=== PATIENT | female | born 1950 | race Caucasian/White ===

== ENCOUNTER 2017-02-21 17:20 | Emergency (ER) | payer OTHER ==
[2017-02-21] MEDS ORDERED: Lidocaine 1% 5ml(IM or SUTURE)(PAIN CLINIC) ONE (17:40)
[2017-02-21] MEDS ORDERED: DIPH,PERTUSS(ACELL),TET VAC/PF 0.5 ML DISP.SYRIN IM ONE (17:41)
[2017-02-21] MEDS ORDERED: Lidocaine 1% 5ml(IM or SUTURE)(PAIN CLINIC) IJ ONE (17:41)
--- NOTE | 2017-02-21 17:41 | ED Physician Documentation ---
General Adult - HISTORIAN Historian: patient - HPI Stated Complaint: laceration L thumb Chief Complaint: General Adult Onset: minutes Timing: still present Severity: moderate Further Comments: yes (Pt is a 67 yo female who tripped on her porch and lacerated the tip of her L thumb in the fall. Tetanus status is unknown.) - ROS CONST: no problems EYES/ENT: none CVS/RESP: none GI/: none MS/SKIN/LYMPH: other (L thumb laceration) - PAST HX Past History: hypertension, other (DM, HLD) Allergies/Adverse Reactions: Allergies Allergy/AdvReac Type Severity Reaction Status Date / Time No Known Allergies Allergy Verified 02/21/17 17:57 Home Medications: Ambulatory Orders Medication Instructions Recorded Benazepril HCl [Lotensin] 20 mg PO BID 02/21/17 Glimepiride [Amaryl] 2 mg PO BID 02/21/17 Metformin HCl [Metformin HCl ER] 1,000 mg PO BID 02/21/17 Pioglitazone HCl [Actos] 30 mg PO DAILY 02/21/17 Rivaroxaban [Xarelto] 20 mg PO DAILY 02/21/17 Simvastatin [Zocor] 20 mg PO HS 02/21/17 - SOCIAL HX Smoking History: non-smoker - FAMILY HX Family History: No - REVIEWED ASSESSMENTS Nursing Assessment Reviewed: Yes Vitals Reviewed: Yes Procedures Wound Location: upper extremity (L thumb tip) Wound Length: 1.5 cm Wound's Depth, Shape: flap Wound Explored: clean Irrigated w/ Saline (ccs): 20 Betadine Prep?: Yes Anesthesia: 1% Lidocaine (digital block) Volume of Anesthetic: 6 cc Wound Debrided: minimal Wound Repaired With: sutures Suture Size/Type: 4:0, nylon Number of Sutures: 2 Progress - Progress Progress: Topical abx Tdap 0.5 ml IM General Adult Physical Exam - PHYSICAL EXAM GENERAL APPEARANCE: mild distress NECK: normal inspection, supple RESPIRATORY: no resp distress BACK: normal inspection SKIN: other (laceration L thumb tip) EXTREMITIES: normal range of motion, other (laceration L thumb tip) NEURO: oriented X3, motor nml, sensation nml Discharge Clincal Impression: L thumb tip laceration Referrals: Chavo Altman MD [Primary Care Provider] - Condition: Good Disposition: HOME, SELF-CARE Decision to Admit: NO Decision Time: 18:26
[2017-02-21 17:57] VITALS: BP 173/83
== END 2017-02-21 18:43 | disposition home or self-care (01) ==
LOC: ED 17:20
DX: S61.012A Laceration without foreign body of left thumb without damage to nail, initial encounter (principal); W19.XXXA Unspecified fall, initial encounter; Y93.9 Activity, unspecified; Y92.9 Unspecified place or not applicable; Z23 Encounter for immunization
CPT/HCPCS: 12001; 90471; 90715; 99283

== ENCOUNTER 2017-11-12 13:31 | Outpatient (CLI) | payer OTHER ==
--- NOTE | 2017-11-12 17:07 | Diagnostic Imaging Report ---
JAYNE CAROLINA [facility] [address] [facility].[address] [id number] Report Submission Date: Nov 12, 2017 4:59:22 PM CDT Patient Study Name: MARYJANE STEVENSON Date: Nov 12, 2017 1:51:29 PM CDT Modality Type: US Gender: F Description: [facility] : 50 Institution: [facility] Physician: JAYNE CAROLINA Right lower extremity venous duplex History: Leg pain Attempted transverse and longitudinal images were performed through the region of the right lower extremity femoral popliteal venous system. The standard probe could not be used due to the patient's obese body habitus. Attempted use of the abdominal probe was performed without success. Impression: Due to the patient's obese body habitus, this exam is nondiagnostic. Therefore, assessment for deep venous thrombosis cannot be performed. Electronically signed on Nov 12, 2017 4:59:22 PM CDT by: Allie MONACO
== END 2017-11-12 13:33 ==
LOC: RAD 13:31
PROVIDERS: ATTEND Family Medicine
DX: M79.604 Pain in right leg (principal)
CPT/HCPCS: 93971

== ENCOUNTER 2018-08-04 15:25 | Outpatient (CLI) | payer OTHER ==
[2018-08-04 16:16] LABS: eGFR (Non-African) > 60
[2018-08-04 16:17] LABS: A1C 7.9 % (-5.7)
[2018-08-04 16:27] LABS: BASOPHILS % 2 % (0-2); SEGMENTED NEUTROPHILS % 53 % (39-79)
== END 2018-08-04 15:26 ==
LOC: EDBD 15:25 → LAB 15:25
PROVIDERS: ATTEND Family Medicine
DX: E11.9 Type 2 diabetes mellitus without complications (principal); I10 Essential (primary) hypertension; Z79.4 Long term (current) use of insulin
CPT/HCPCS: 36415; 80053; 83036; 85025

== ENCOUNTER 2018-10-29 16:47 | Outpatient (CLI) | payer OTHER | END 2018-10-29 16:50 | LOC: LABRHC 16:47 | PROVIDERS: ATTEND Family Medicine | DX: N39.0 Urinary tract infection, site not specified (principal) | CPT/HCPCS: 87086; 87186 ==

== ENCOUNTER 2018-12-01 10:53 | Outpatient (CLI) | payer OTHER ==
[2018-12-01 11:25] LABS: BASOPHILS % 0.4 % (0.0-1.5); NEUTROPHILS # 5.1 # k/uL (1.4-7.7)
== END 2018-12-01 10:58 ==
LOC: LAB 10:53
PROVIDERS: ATTEND Family Medicine
DX: K62.5 Hemorrhage of anus and rectum (principal)
CPT/HCPCS: 36415; 85025

== ENCOUNTER 2019-01-05 10:31 | Outpatient (CLI) | payer OTHER | END 2019-01-05 10:36 | LOC: LAB 10:31 | PROVIDERS: ATTEND Family Medicine | DX: E11.9 Type 2 diabetes mellitus without complications (principal); Z79.4 Long term (current) use of insulin | CPT/HCPCS: 36415; 83036 ==